=== PATIENT | female | born 1960 | race African-American/Black ===

== ENCOUNTER 2017-11-18 19:43 | Inpatient (IN) ==
[2017-11-18] MEDS ORDERED: hydrALAZINE 20 MG/1 ML VIAL IV STA (21:09)
[2017-11-18] MEDS ORDERED: hydrALAZINE 20 MG/1 ML VIAL ONE (21:21)
[2017-11-18 21:41] LABS: Basophils % 0.5 % (0.0-0.8); Eosinophils % 0.7 % (0.00-10.9); Hematocrit 43.8 VOL% (35.7-47.0); Hemoglobin 13.7 GM/DL (12.0-16.0); Immature Granulocytes % 0.3 %; Immature Granulocytes Absolute 0.02 #; Lymphocytes # 1.9 10*3/uL (1.4-4.0); Lymphocytes % 30.4 % (21.3-54.2); Mean Corpuscular HGB Conc 31.3 GM/DL (32-36); Mean Corpuscular Hemoglobin 27 PG (27-34); Mean Corpuscular Volume 86.2 FL (87-102); Mean Platelet Volume 9.6 FL (9.6-12.0); Monocytes # 0.4 10*3/uL (0.11-0.8); Monocytes % 6.2 % (1.7-12.7); Neutrophils # 3.8 10*3/uL (1.4-7.4); Neutrophils % 61.9 % (38.7-73.9); Platelet Count 258 T/CUMM (130-400); Red Blood Count 5.08 MC/CUMM (3.8-5.5); Red Cell Distribution Width 13.2 % (9.3-17.3); White Blood Count 6.1 T/CUMM (4-12)
[2017-11-18 22:13] LABS: Alanine Aminotransferase 22 U/L (13-56); Albumin 4.2 G/DL (3.4-5.0); Alkaline Phosphatase 85 U/L (45-117); Aspartate Amino Transferase 20 U/L (0-37); Bilirubin,Total < 0.39 MG/DL (0.2-1.0); Blood Urea Nitrogen 14 MG/DL (7-18); Calcium 9.3 MG/DL (8.5-10.1); Glucose 105 MG/DL (74-106); Magnesium 2.3 MG/DL (1.8-2.4); Osmolality,Calculated 279.4 MOS/KG (273-304); Potassium 3.6 MMOL/L (3.5-5.1); Sodium 140 MMOL/L (136-145); Total Protein 8.3 G/DL (6.4-8.3)
[2017-11-18 22:23] LABS: Troponin I Only 0.114 NG/ML (0.00-0.045)
[2017-11-18] MEDS ORDERED: ONDANSETRON 4 MG/2 ML VIAL IV PRN (23:16)
[2017-11-18] MEDS ORDERED: ZALEPLON 5 MG CAPSULE PO PRN (23:16)
[2017-11-18] MEDS ORDERED: ACETAMINOPHEN 500 MG TABLET PO PRN (23:16)
[2017-11-18] MEDS ORDERED: hydrALAZINE 20 MG/1 ML VIAL IV PRN (23:22)
[2017-11-18] MEDS ORDERED: SODIUM CHLORIDE 0.45% 1,000 ML IV SCH (23:30)
[2017-11-19] MEDS: ENOXAPARIN 40 MG/0.4 ML SYRINGE SUBCUT SCH ×2 (01:11→22:30)
[2017-11-19 01:47] LABS: Basophils % 0.5 % (0.0-0.8); Eosinophils % 0.5 % (0.00-10.9); Hematocrit 43.1 VOL% (35.7-47.0); Hemoglobin 13.4 GM/DL (12.0-16.0); Immature Granulocytes % 0.3 %; Immature Granulocytes Absolute 0.02 #; Lymphocytes # 2.1 10*3/uL (1.4-4.0); Mean Corpuscular HGB Conc 31.1 GM/DL (32-36); Mean Corpuscular Hemoglobin 26 PG (27-34); Mean Platelet Volume 9.9 FL (9.6-12.0); Monocytes # 0.4 10*3/uL (0.11-0.8); Monocytes % 5.9 % (1.7-12.7); Neutrophils # 3.5 10*3/uL (1.4-7.4); Neutrophils % 57.8 % (38.7-73.9); Platelet Count 297 T/CUMM (130-400); Red Blood Count 5.07 MC/CUMM (3.8-5.5); Red Cell Distribution Width 13.3 % (9.3-17.3); White Blood Count 6.1 T/CUMM (4-12)
[2017-11-19 02:06] LABS: Alanine Aminotransferase 21 U/L (13-56); Albumin 4.1 G/DL (3.4-5.0); Alkaline Phosphatase 78 U/L (45-117); Aspartate Amino Transferase 14 U/L (0-37); Bilirubin,Total < 0.39 MG/DL (0.2-1.0); Blood Urea Nitrogen 12 MG/DL (7-18); Cholesterol 194 MG/DL (50-200); Glucose 112 MG/DL (74-106); HDL Cholesterol 54 MG/DL (40-60); Osmolality,Calculated 283.1 MOS/KG (273-304); Potassium 3.3 MMOL/L (3.5-5.1); Risk Ratio 3.59; Sodium 142 MMOL/L (136-145); Total Protein 8.3 G/DL (6.4-8.3); Triglycerides 97 MG/DL (2-150); VLDL CHOLESTEROL 19.4 MG/DL
[2017-11-19] MEDS: ASPIRIN EC 81 MG TABLET PO SCH (10:22)
[2017-11-19] MEDS: PANTOPRAZOLE 40 MG TABLET PO SCH (10:22)
[2017-11-19] MEDS: amLODIPine 10 MG TABLET PO SCH (10:22)
[2017-11-19] MEDS: hydroCHLOROthiazide 12.5 MG CAPSULE PO SCH (10:22)
[2017-11-19] MEDS: LOSARTAN 50 MG TABLET PO SCH ×2 (10:22→21:05)
[2017-11-19 11:04] LABS: Apearance,Urine Slightly Hazy (Clear); Bilirubin,Urine Negative (Negative); Blood, Urine Negative (Negative); Glucose,Urine (UA) Negative (Negative); Ketones,Urine Negative (Negative); Nitrite,Urine Negative (Negative); Protein,Urine Negative; RBC,Urine <1 /HPF (0-4); Squamous Epithelial Cell,Urine Occasional /HPF (0-10); Urine Color Straw (Yellow); Urine Specific Gravity 1.003 (1.001-1.035); Urine Urobilinogen < 2.0 EU/DL (0.2-1.0); WBC,Urine 3 /HPF (0-6)
[2017-11-19 11:10] LABS: Barbiturates Screen,Urine Negative (Negative); Benzodiazepines Screen,Urine Negative (Negative); Cannabinoid Screen,Urine Negative (Negative); Opiate Screen,Urine Negative (Negative); Phencyclidine Screen,Urine Negative (Negative)
[2017-11-20] MEDS: LOSARTAN 50 MG TABLET PO SCH (08:17)
[2017-11-20] MEDS: ASPIRIN EC 81 MG TABLET PO SCH (08:18)
[2017-11-20] MEDS: hydroCHLOROthiazide 12.5 MG CAPSULE PO SCH (08:18)
[2017-11-20] MEDS: POTASSIUM CHLORIDE 20 MEQ TABLET PO PRN ×2 (08:18→11:59)
[2017-11-20] MEDS: PANTOPRAZOLE 40 MG TABLET PO SCH (08:18)
[2017-11-20] MEDS: amLODIPine 10 MG TABLET PO SCH (08:18)
[2017-11-20 11:33] VITALS: BP 147/78
== END 2017-11-20 13:20 | disposition home or self-care (01) | DRG 305 ==
LOC: N.ED 19:43 → N.EDINP 23:16 → N.TELEN 23:59
PROVIDERS: ADMIT Internal Medicine Cardiovascular Disease; ATTEND Internal Medicine Cardiovascular Disease